=== PATIENT | female | born 1960 | race Caucasian/White ===

== ENCOUNTER 2022-04-26 21:29 | Emergency (ER) | payer MEDICARE, MEDICAID, SELFPAY ==
[2022-04-26 21:49] VITALS: BP 138/66; PULSE 77; RESP 18; TEMP 36.8; O2SAT 99; BMI 22.3
[2022-04-26 22:03] LABS: Bilirubin Urine UA 1+ (NEGATIVE); Color Urine UA YELLOW; Glucose Urine UA NEGATIVE (Negative); Ketones Urine UA NEGATIVE (NEGATIVE); Leukocyte Esterase Urine UA NEGATIVE (NEGATIVE); Nitrite Urine UA NEGATIVE (Negative); Occult Blood Urine UA 3+ (Negative); Protein Urine UA 1+ (Negative); Specific Gravity Urine UA >=1.030 (1.000-1.035); Urobilinogen Urine UA 0.2 E.U./dL (0.2)
[2022-04-26 22:08] LABS: Appearance Urine UA SL CLOUDY; pH Urine UA 5.5 (4.5-8.0)
[2022-04-26 22:10] LABS: Ictotest Urine Negative (Negative)
[2022-04-26 22:18] LABS: RBC Urine 30-100/HPF (0-5/HPF)
[2022-04-26 22:19] LABS: Bacteria Urine None Seen; Mucus Urine 2+ (Negative); Renal Epithelial Cells Urine 1-5/HPF (0-1/HPF); Squamous Epithelial Cell Urine 1-5 /HPF (0-5/HPF); WBC Urine 1-5/HPF (0-5/HPF)
[2022-04-26 22:20] LABS: Culture Indicated Urine Cult Not Indicated
--- NOTE | 2022-04-26 22:55 | DI.CT.S_ITS ---
PROCEDURE: CT KIDNEY URETER BLADDER (KUB) INDICATIONS: right flank pain TECHNIQUE: Axial sections were acquired from the lung bases to the pubic symphysis. Coronal and sagittal reformats were performed. For radiation dose reduction, the following was used: automated exposure control, adjustment of mA and/or kV according to patient size. COMPARISON: [facility], CT, CT KUB, 04/15/2022, 18:34. FINDINGS: Image quality: Excellent. Lung bases: There is minimal atelectasis. Heart: Heart is normal in size. URINARY: Right Kidney and Ureter: There is a persistent obstructing urinary stone in the distal right ureter just proximal to the ureterovesicular junction measuring up to 0.5 cm with attenuation values of approximately 700-800 Hounsfield units. There is associated mild right hydroureteronephrosis with perinephric and periureteral fat stranding. No additional renal stones identified. Left Kidney and Ureter: No stones or hydronephrosis. No hydroureter. Bladder: Normal wall thickness. No stones. ABDOMEN: Liver: Noncontrast evaluation of the liver demonstrates no discrete mass. Gallbladder: Within normal limits without calcified gallstones. Biliary ducts: No biliary ductal dilatation. Pancreas: Unremarkable. Spleen: Normal in size. Adrenal Glands: No adrenal nodules. Stomach and Bowel: Stomach, small bowel loops, and colon are normal in caliber and wall thickness. The appendix is normal in appearance. Peritoneum: No abnormal intraperitoneal fluid. No free air. Ventral Wall: No hernia. Abdominal Nodes: No retroperitoneal or mesenteric adenopathy by size criteria. Vessels: Aorta and inferior vena cava are normal in size. PELVIS: Pelvic Organs: Uterus is surgically absent. Pelvic Nodes: No enlarged lymph nodes. Miscellaneous: No inguinal hernias identified. Bones: Visualized osseous structures demonstrate no suspicious focal lesions. IMPRESSION: 1. Persistent obstructing urinary stone in the distal right ureter just proximal to the UVJ with mild right hydroureteronephrosis. Dictated by: Balbir Stroud M.D. on 04/26/2022 at 23:54 Approved by: Balbir Stroud M.D. on 04/26/2022 at 23:59
--- NOTE | 2022-04-26 22:55 | ED.FEMALEGU ---
HPI - Female Genitourinary General Chief complaint: Urogenital-Female Stated complaint: RT. SIDE FLANK PAIN FRONT AND BACK Time Seen by Provider: 04/26/22 22:47 Source: patient Mode of arrival: Ambulatory History of Present Illness HPI Narrative: Patient healthy 61-year-old female presents with right-sided flank pain. She reports that she was seen evaluated [facility] on April 15 diagnosed with to kidney stone she says 1 was in the bladder and 1 was in the kidney 1 was 4 and 1 6. After her visit there she was prescribed tamsulosin and oxycodone and Zofran. She reports that she has not had any further pain she has not needed anything until tonight when she had sudden onset right flank pain radiating into her urethra. Feeling slightly nauseous. She took oxycodone and hour and half ago and says it is not helping. She is deathly afraid of needles and needed Ativan before evaluation previously. Related Data Home Medications Medication Instructions Recorded Confirmed ondansetron 8 mg disintegrating 8 mg PO PRN PRN Nausea 04/26/22 04/26/22 tablet oxycodone 5 mg tablet 5 mg PO DAILY PRN Pain (Scale 04/26/22 04/26/22 Score 1-3) tamsulosin 0.4 mg capsule 0.4 mg PO DAILY 04/26/22 04/26/22 Allergies Allergy/AdvReac Type Severity Reaction Status Date / Time amoxicillin Allergy Verified 04/26/22 21:55 nitrofurantoin Allergy Verified 04/26/22 21:55 [From Macrobid] Sulfa (Sulfonamide Allergy Verified 04/26/22 21:55 Antibiotics) sulfanilamide Allergy Verified 04/26/22 21:55 gabapentin AdvReac Verified 04/26/22 21:55 pregabalin [From Lyrica] AdvReac Nausea Verified 04/26/22 21:55 Review of Systems Review of Systems ROS Unobtainable: All systems reviewed & are unremarkable except as noted in HPI and below Patient History alcohol intake frequency: other Last Alcoholic Drink: none Substance Use Type: does not use Exam Initial Vital Signs Initial Vital Signs: Vital Signs Temperature 98.2 F 04/26/22 21:49 Pulse Rate 77 04/26/22 21:49 Respiratory Rate 18 04/26/22 21:49 Blood Pressure 138/66 04/26/22 21:49 Pulse Oximetry 99 04/26/22 21:49 Oxygen Delivery Method 04/26/22 21:49 GENERAL: Alert 61-year-old female appears uncomfortable and in no acute distress. HEENT: Head atraumatic,EOMI, pupils reactive, face symmetric, moist mucous membranes CARDIOVASCULAR: Regular rate and rhythm without murmurs, rubs or gallops. RESPIRATORY: Breath sounds equal bilaterally, no wheezes rales or rhonchi. ABDOMEN: Soft, nontender. Normoactive bowel sounds all 4 quadrants. Minimal right lower quadrant pain. : Right CVA tenderness EXTREMITIES: Normal range of motion, no clubbing or edema. Neurovascularly intact NEUROLOGICAL: Alert and oriented x4. SKIN: Warm, dry, no laceration, no petechiae, no rashes or lesions. Course Orders Ordered: ED Orders 04/26/22 21:45 Ictotest Urine Stat Urinalysis and Microscopic Stat 04/26/22 22:55 CT kidney ureter bladder (KUB) Stat Discontinued Medications Ketorolac Tromethamine (Ketorolac 30 Mg/Ml Vial) 15 mg IV NOW ONE Stop: 04/26/22 22:56 Lorazepam (Lorazepam 0.5 Mg Tablet) 1 mg PO NOW ONE Stop: 04/26/22 22:56 Last Admin: 04/26/22 23:17 Dose: 1 mg Documented By: PRINCESS Vital Signs Vital signs: Vital Signs - 8 hr 04/26/22 21:49 04/27/22 00:35 Temperature 98.2 F Pulse Rate 77 75 Respiratory Rate 18 16 Blood Pressure 138/66 135/65 Pulse Oximetry 99 100 Oxygen Delivery Method Room Air Room Air MDM - Female Genitourinary Lab Data Labs: Lab Results 04/26/22 Range/Units 21:45 Urine Color Yellow Urine Appearance Sl cloudy Urine pH 5.5 (4.5-8.0) Ur Specific [place] >=1.030 H (1.000-1.035) Urine Protein 1+ H (Negative) Urine Glucose (UA) Negative (Negative) g/dL Urine Ketones Negative (NEGATIVE) Urine Occult Blood 3+ H (Negative) Urine Nitrate Negative (Negative) Urine Bilirubin 1+ H (NEGATIVE) Ur Bilirubin Confirm Negative (Negative) Urine Urobilinogen 0.2 (0.2) E.U./dL Ur Leukocyte Esterase Negative (NEGATIVE) Urine RBC 30-100/hpf H (0-5/HPF) Urine WBC 1-5/hpf (0-5/HPF) Ur Squamous Epith Cells 1-5 /hpf (0-5/HPF) Ur Renal Epithelial Cell 1-5/hpf H (0-1/HPF) Urine Bacteria None seen (None) Urine Mucus 2+ H (Negative) Ur Culture Indicated? Cult not indicated Imaging Data CT scan - abdomen/pelvis: Radiologist's Impression: PROCEDURE:? CT KIDNEY URETER BLADDER (KUB) ? INDICATIONS:? right flank pain ? TECHNIQUE:? Axial sections were acquired from the lung bases to the pubic symphysis.? Coronal and sagittal reformats were performed.? For radiation dose reduction, the following was used: ?automated exposure control, adjustment of mA and/or kV according to patient size.? ? COMPARISON:? [facility], CT, CT KUB, 04/15/2022, 18:34. ? FINDINGS:? Image quality:? Excellent.? ? Lung bases:? There is minimal atelectasis.? ? Heart:? Heart is normal in size. ? URINARY: Right Kidney and Ureter: ? There is a persistent obstructing urinary stone in the distal right ureter just proximal to the ureterovesicular junction measuring up to 0.5 cm with attenuation values of approximately 700-800 Hounsfield units.? There is associated mild right hydroureteronephrosis with perinephric and periureteral fat stranding.? No additional renal stones identified. ? Left Kidney and Ureter: ? No stones or hydronephrosis.? No hydroureter. ? Bladder:? Normal wall thickness. No stones. ? ? ? ABDOMEN: Liver:? Noncontrast evaluation of the liver demonstrates no discrete? mass. Gallbladder:? Within normal limits without calcified gallstones.? ? Biliary ducts:? No biliary ductal dilatation.? ? Pancreas:? Unremarkable.? ? Spleen:? Normal in size.? ? Adrenal Glands:? No adrenal nodules.? ? ? Stomach and Bowel:? Stomach, small bowel loops, and colon are normal in caliber and wall thickness.? The appendix is normal in appearance.? Peritoneum:? No abnormal intraperitoneal fluid.? No free air.? ? Ventral Wall: ? No hernia.? Abdominal Nodes:? No retroperitoneal or mesenteric adenopathy by size criteria.? Vessels:? Aorta and inferior vena cava are normal in size.? ? PELVIS: Pelvic Organs:? Uterus is surgically absent.? ? Pelvic Nodes: No enlarged lymph nodes.? Miscellaneous: No inguinal hernias identified. ? ? ? Bones:? Visualized osseous structures demonstrate no suspicious focal lesions. ? IMPRESSION:? ? 1. Persistent obstructing urinary stone in the distal right ureter just proximal to the UVJ with mild right hydroureteronephrosis.? ? ? Dictated by: Balbir Stroud M.D. on 04/26/2022 at 23:54 MDM Narrative Medical decision making narrative: Patient 61-year-old female with known kidney stones presents with right flank pain radiating to her ureter. Urinalysis shows hematuria but no obvious infection. She is deathly afraid of needles she was given Ativan previously. She got Ativan today she said it did not knock her out like it did last time. CT does confirm 5 mm stone at the UVJ with mild hydronephrosis. She is refusing any type of blood work or needle she understands that we can not evaluate for renal failure or leukocytosis however she is afebrile not tachycardic or hypotensive. She has all medications that she needs to at home including oxycodone tamsulosin and Zofran. We discussed return precautions and what would need to be done if things were worsening. Different diagnosis kidney stone, appendicitis, cholelithiasis, diverticulitis, acute kidney injury Discharge Plan Departure Patient Disposition: Home Clinical Impression: Kidney stone Instructions: DI for Kidney Stones Activity Restrictions/Additional Instructions: * You've been diagnosed with kidney stone * What to do: Increase fluid intake, Strain urine, try to catch stone * Please follow-up with your primary care provider in the next 2-3 days, you may require urology consultation please discuss this with -If you should have fever, or pain is uncontrolled with medication at home or any other concerning symptoms return to ER for further evaluation MEDICATIONS Take Motrin 600 mg every 6 hours as needed for pain Zofran as previously prescribed Oxycodone as previously prescribed Tamsulosin as previously prescribed CONTROLLED SUBSTANCE DISCHARGE (Narcotoic/benzodiazepine) 1. You have been prescribed narcotic medications, it does have acetaminophen/Tylenol/paracetamol in it so do not take extra Tylenol or Tylenol containing products 2. Please understand that we cannot provide further refills of narcotics, benzodiazepines or controlled substances through the ED and her pain management will need to be through your provider. 3. While on these medications you cannot drive or operate heavy machinery. 4. You cannot sign legal documents or perform any duties such as this. 5. As long as you're taking opiate pain medications he should also be taking a stool softener such as Colace, Dulcolax, MiraLAX or prune juice, to help avoid constipation. Prescriptions: No Action ondansetron 8 mg tablet,disintegrating 8 mg PO PRN PRN (Reason: Nausea) oxycodone 5 mg tablet 5 mg PO DAILY PRN (Reason: Pain (Scale Score 1-3)) tamsulosin 0.4 mg capsule 0.4 mg PO DAILY Stand Alone Forms: Patient Portal/API
[2022-04-26] MEDS: LORazepam 0.5 MG TABLET 1 MG PO (23:17)
[2022-04-27 00:35] VITALS: BP 135/65; PULSE 75; RESP 16; O2SAT 100
== END 2022-04-27 00:38 | disposition home or self-care (01) ==
PROVIDERS: Emergency Provider Emergency Medicine
DX: N20.0 Calculus of kidney (principal)
CPT/HCPCS: 74176; 81001; 99283; 99284

== ENCOUNTER 2023-01-07 23:27 | Emergency (ER) | payer MEDICARE, MEDICAID, SELFPAY ==
[2023-01-07 23:35] VITALS: BP 182/77; PULSE 84; RESP 17; TEMP 36.9; O2SAT 99; BMI 22.6
--- NOTE | 2023-01-08 00:54 | ED_ITS ---
HPI - General Adult General Chief complaint: Eye Problems Stated complaint: pink eye Time Seen by Provider: 01/08/23 00:27 Source: patient Mode of arrival: Ambulatory History of Present Illness HPI narrative: 62-year-old woman with no significant medical history presents with minor eye irritation and discharge over the last week and since 10:00 p.m. this evening has become increasingly red and painful. She is not photophobic and once the debris is cleared from her eye she is not having any visual disturbances. She describes no fevers or headaches. She is not had similar symptoms. Related Data Home Medications Medication Instructions Recorded Confirmed ondansetron 8 mg disintegrating 8 mg PO PRN PRN Nausea 04/26/22 04/26/22 tablet oxycodone 5 mg tablet 5 mg PO DAILY PRN Pain (Scale 04/26/22 04/26/22 Score 1-3) tamsulosin 0.4 mg capsule 0.4 mg PO DAILY 04/26/22 04/26/22 Previous Rx's Medication Instructions Recorded gentamicin 0.3 % eye drops 2 drp EYE-LEFT Q6H 3 days #5 mL 01/08/23 Allergies Allergy/AdvReac Type Severity Reaction Status Date / Time amoxicillin Allergy Verified 04/26/22 21:55 nitrofurantoin Allergy Verified 04/26/22 21:55 [From Macrobid] Sulfa (Sulfonamide Allergy Verified 04/26/22 21:55 Antibiotics) sulfanilamide Allergy Verified 04/26/22 21:55 gabapentin AdvReac Verified 04/26/22 21:55 pregabalin [From Lyrica] AdvReac Nausea Verified 04/26/22 21:55 Review of Systems Review of Systems Narrative: Pertinent positive and negative findings as per HPI Patient History Social History Smoking Status: Current every day smoker Smoking Status: Current every day smoker alcohol intake frequency: other Substance Use Type: does not use Exam Initial Vital Signs Initial Vital Signs: Vital Signs Temperature 98.4 F 01/07/23 23:35 Pulse Rate 84 01/07/23 23:35 Respiratory Rate 17 01/07/23 23:35 Blood Pressure 182/77 H 01/07/23 23:35 Pulse Oximetry 99 01/07/23 23:35 Oxygen Delivery Method Room Air 11/10/23 23:35 General: Alert appropriate in no acute distress ENT: Left eye has minor debris with scleral injection. Pupils are equal and reactive and nonpainful to dilation. Extraocular eye movements are intact and do not cause pain. Respiratory: Able to speak in full sentences, no obvious respiratory distress Skin: No obvious rashes, warm and dry Neurologic: Grossly intact no obvious asymmetries or abnormalities Psych: appropriate insight and affect, cooperative Course Orders Ordered: Discontinued Medications Erythromycin (Erythromycin Ophth 1 Gm Oint) 1 applic EYE-LEFT NOW ONE Stop: 01/08/23 00:55 Last Admin: 01/08/23 00:58 Dose: 1 applic Vital Signs Vital signs: Vital Signs - 8 hr 01/07/23 23:35 Temperature 98.4 F Pulse Rate 84 Respiratory Rate 17 Blood Pressure 182/77 H Pulse Oximetry 99 Oxygen Delivery Method Room Air Medical Decision Making [facility] Narrative Medical decision making narrative: CC: Left eye pain worse over the last 3 hours Data collected from: patient, Differential considered: Conjunctivitis, foreign body, iritis, glaucoma with acute angle closure Exam documented above, pertinent findings include: Scleral injection, mild debris and no pain with eye movement or pupil dilation to the left eye Treatments: She is given some erythromycin eye ointment to use for this evening until she can warehouse order picker gentamicin eyedrops tomorrow Discussion: 62-year-old woman with some minor irritation to the left eye she had been rubbing at it now noticing increasing pain discharge and erythema consistent with acute bacterial conjunctivitis. She is no other sequelae that are concerning for acute visual loss, eye redness, retinal abnormalities or acute angle closure glaucoma. She talked about using the erythromycin ointment before she goes to bed tonight to help with the irritating sensation and picking up the gentamicin eye drops tomorrow. Questions are answered and she is safe for discharge Discharge Plan Departure Patient Disposition: Home Clinical Impression: Bacterial conjunctivitis Instructions: DI for Conjunctivitis Activity Restrictions/Additional Instructions: Thank you for coming in today For this evening, put some of the antibiotic ointment inside your lower lid just before bed so that there is some medicine being applied tonight. [facility] [place] for you to warehouse order picker tomorrow If you notice that your eye is not improving, if you are developing significant vision changes, the light is causing significant sensitivity when you open your eye or new issues altogether it would be very appropriate to return to the emergency depart Prescriptions: New gentamicin 0.3 % drops 2 drp EYE-LEFT Q6H 3 Days Qty: 5 0RF No Action ondansetron 8 mg tablet,disintegrating 8 mg PO PRN PRN (Reason: Nausea) oxycodone 5 mg tablet 5 mg PO DAILY PRN (Reason: Pain (Scale Score 1-3)) tamsulosin 0.4 mg capsule 0.4 mg PO DAILY Stand Alone Forms: Patient Portal/API
[2023-01-08] MEDS: ERYTHROMYCIN OPHTH 1 GM OINT 1 APPLIC EYE-LEFT (00:58)
[2023-01-08 01:13] VITALS: BP 161/74; PULSE 74; RESP 16; O2SAT 99
== END 2023-01-08 01:14 | disposition home or self-care (01) ==
PROVIDERS: Emergency Provider Emergency Medicine
DX: H10.89 Other conjunctivitis (principal)
CPT/HCPCS: 99282; 99283